=== PATIENT | male | born 1975 | race Caucasian/White ===

== ENCOUNTER 2018-06-04 11:57 | Emergency (ER) | payer OTHER ==
[~2018-06-04] VITALS: Ht 190.5 cm; Wt 121.8 kg
[2018-06-04 12:09] VITALS: Ht 190.5 cm; Wt 121.8 kg
[2018-06-04] MEDS ORDERED: TORADOL10 MG PO (15:44)
[2018-06-04] MEDS ORDERED: ROBAXIN500 MG PO (15:44)
[2018-06-04 15:53] VITALS: BP 137/75
== END 2018-06-04 15:59 | disposition home or self-care (01) ==
LOC: D.ER 11:57
DX: M51.36 Other intervertebral disc degeneration, lumbar region (principal)